=== PATIENT | female | born 1970 | race Two or more races ===

== ENCOUNTER 2018-11-03 10:11 | Inpatient (IN) | payer MEDICAID ==
[~2018-11-03] VITALS: Ht 160 cm; Wt 59.9 kg
[2018-11-03 11:26] LABS: BASOPHILS % (AUTO) 0.8 % (0.0-2.0); HEMATOCRIT 38.9 % (36-46); HEMOGLOBIN 12.7 g/dL (12.0-16.0); LYMPHOCYTES # (AUTO) 1.8 K/uL (1.0-4.8); LYMPHOCYTES % (AUTO) 23.3 % (22.0-44.0); MEAN CORPUSCULAR HGB CONC 32.6 G/dL (31.0-37.0); MEAN CORPUSCULAR VOLUME 89 fL (80-100); MONOCYTES # (AUTO) 0.6 K/uL (0.1-1.0); MONOCYTES % (AUTO) 7.7 % (2.0-9.0); NEUTROPHILS # (AUTO) 5.1 K/uL (1.8-7.7); NEUTROPHILS % (AUTO) 64.2 % (40.0-70.0); PLATELET COUNT (AUTO) 298 K/uL (150-450); RED BLOOD CELL COUNT(AUTO) 4.37 MIL/uL (4.00-5.20); RED CELL DISTRIBUTION WIDTH 12.6 % (11.5-14.5)
[2018-11-03 11:57] LABS: ALANINE AMINOTRANSFERASE 19 U/L (12-78); ALBUMIN 3.4 g/dL (3.4-5.0); ALKALINE PHOSPHATASE 86 U/L (46-116); ANION GAP 9 mmol/L (8-16); ASPARTATE AMINOTRANSFERASE 24 U/L (15-37); BILIRUBIN,TOTAL 0.2 mg/dL (0.1-1.0); CALCIUM, TOTAL 8.4 mg/dL (8.8-10.5); CARBON DIOXIDE 28 mmol/L (22-29); CHLORIDE 103 mmol/L (98-107); CREATININE 0.72 mg/dL (0.60-1.30); GLOMERULAR FILTR. RATE CALC > 60 mL/min (>60); GLUCOSE,RANDOM 72 mg/dL (70-110); HCG,QUANTITATIVE 3 mIU/mL (0-6); POTASSIUM 3.5 mmol/L (3.5-5.1); SODIUM SERUM 140 mmol/L (136-145); TOTAL PROTEIN, SERUM 6.9 g/dL (6.4-8.2)
[2018-11-03 12:23] LABS: UREA NITROGEN, BLOOD 9 mg/dL (7-18)
[2018-11-03] MEDS ORDERED: LORazepam 2 MG TABLET PO PRN (18:00)
[2018-11-03 19:42] VITALS: BP 122/62
[2018-11-03] MEDS ORDERED: DOCUSATE SODIUM 100 MG CAPSULE PO PRN (21:00)
[2018-11-03] MEDS ORDERED: LOPERAMIDE HCL 2 MG CAPSULE PO PRN (21:00)
[2018-11-03] MEDS ORDERED: PETROLATUM,WHITE 28 GM JELLY TP PRN (21:00)
[2018-11-03] MEDS ORDERED: CloNIDine HCL 0.1 MG TABLET PO PRN (21:00)
[2018-11-03] MEDS ORDERED: ONDANSETRON HCL 4 MG TABLET PO PRN (21:00)
[2018-11-03] MEDS ORDERED: NICOTINE 14 MG/24 HOUR PATCH TD PRN (21:00)
[2018-11-03] MEDS ORDERED: MAGNESIUM HYDROXIDE SUSPENSION 30 ML UDCUP PO PRN (21:00)
[2018-11-03] MEDS ORDERED: ACETAMINOPHEN 325 MG TABLET PO PRN (21:00)
[2018-11-03] MEDS ORDERED: ALBUTEROL SULFATE HFA 90 MCG/PUFF 8 GM INHALER IH PRN (21:00)
[2018-11-03] MEDS ORDERED: GuaiFENesin/D-METHORPHAN [SUGAR-FREE] 200-20MG/10 ML SYRUP UDCUP PO PRN (21:00)
[2018-11-03] MEDS ORDERED: MAG HYDROX/AL HYDROX/SIMETH ES 30 ML SUSPENSION UDCUP PO PRN (21:00)
[2018-11-03] MEDS ORDERED: IBUPROFEN 400 MG TABLET PO PRN (21:00)
[2018-11-04] MEDS: SULFAMETHOX/TRIMETH DS 800-160 MG/TABLET PO SCH ×2 (09:00→17:00)
[2018-11-04 09:26] VITALS: BP 153/77
[2018-11-04] MEDS: LEVOFLOXACIN 500 MG TABLET PO SCH (11:00)
[2018-11-04] MEDS: ZIPRASIDONE HCL 40 MG CAPSULE PO SCH (17:30)
[2018-11-05 01:25] VITALS: BP 107/84
[2018-11-05] MEDS: HALOPERIDOL 5 MG TABLET PO PRN (01:27)
[2018-11-05] MEDS: ZOLPIDEM TARTRATE 10 MG TABLET PO PRN (01:27)
[2018-11-05] MEDS: ZIPRASIDONE HCL 40 MG CAPSULE PO SCH ×2 (07:01→17:08)
[2018-11-05 08:30] VITALS: BP 158/96
[2018-11-05] MEDS: SULFAMETHOX/TRIMETH DS 800-160 MG/TABLET PO SCH ×2 (09:47→17:08)
[2018-11-05] MEDS: ASCORBIC ACID 500 MG TABLET PO SCH (09:48)
[2018-11-05] MEDS: MULTIVITAMINS WITH MINERALS, THERAPEUTIC TABLET PO SCH (09:48)
[2018-11-05] MEDS: LEVOFLOXACIN 500 MG TABLET PO SCH (09:48)
[2018-11-06] MEDS: ZIPRASIDONE HCL 40 MG CAPSULE PO SCH ×2 (06:53→17:00)
[2018-11-06] MEDS: LEVOFLOXACIN 500 MG TABLET PO SCH (09:30)
[2018-11-06] MEDS: ASCORBIC ACID 500 MG TABLET PO SCH (09:30)
[2018-11-06] MEDS: MULTIVITAMINS WITH MINERALS, THERAPEUTIC TABLET PO SCH (09:30)
[2018-11-06] MEDS: SULFAMETHOX/TRIMETH DS 800-160 MG/TABLET PO SCH ×2 (09:30→17:00)
[2018-11-06 10:45] VITALS: BP 153/77
[2018-11-07 01:33] VITALS: BP 144/76
[2018-11-07] MEDS: ZIPRASIDONE HCL 40 MG CAPSULE PO SCH ×2 (06:52→17:12)
[2018-11-07] MEDS: LEVOFLOXACIN 500 MG TABLET PO SCH (09:50)
[2018-11-07] MEDS: MULTIVITAMINS WITH MINERALS, THERAPEUTIC TABLET PO SCH (09:50)
[2018-11-07] MEDS: ASCORBIC ACID 500 MG TABLET PO SCH (09:50)
[2018-11-07] MEDS: SULFAMETHOX/TRIMETH DS 800-160 MG/TABLET PO SCH ×2 (09:50→17:12)
[2018-11-07] MEDS: AmLODIPine BESYLATE 5 MG TABLET PO SCH (16:45)
[2018-11-07] MEDS: HALOPERIDOL 5 MG TABLET PO PRN (17:12)
[2018-11-07 17:50] VITALS: BP 121/66
[2018-11-08] MEDS: ZOLPIDEM TARTRATE 10 MG TABLET PO PRN (01:34)
[2018-11-08] MEDS: ZIPRASIDONE HCL 40 MG CAPSULE PO SCH (06:48)
[2018-11-08 08:54] VITALS: BP 114/67
[2018-11-08] MEDS ORDERED: ZIPR40CA2 PO (10:41)
[2018-11-08] MEDS: LEVOFLOXACIN 500 MG TABLET PO SCH (10:57)
[2018-11-08] MEDS: ASCORBIC ACID 500 MG TABLET PO SCH (10:57)
[2018-11-08] MEDS: AmLODIPine BESYLATE 5 MG TABLET PO SCH (10:58)
[2018-11-08] MEDS: SULFAMETHOX/TRIMETH DS 800-160 MG/TABLET PO SCH (10:58)
[2018-11-08] MEDS: MULTIVITAMINS WITH MINERALS, THERAPEUTIC TABLET PO SCH (10:59)
[2018-11-08] MEDS ORDERED: AMLO5TAB9 PO (11:20)
[2018-11-08] MEDS ORDERED: BACTDSB PO (11:20)
[2018-11-08] MEDS ORDERED: LEVO500 PO (11:20)
== END 2018-11-08 13:00 | disposition home or self-care (01) | DRG 750 ==
LOC: EMS 10:13 → 3EI 19:00
PROVIDERS: ADMIT Psychiatry & Neurology Psychiatry; ATTEND Psychiatry & Neurology Psychiatry
DX: F25.0 Schizoaffective disorder, bipolar type (principal); Z59.0 Homelessness; F10.10 Alcohol abuse, uncomplicated; F41.9 Anxiety disorder, unspecified; Y90.9 Presence of alcohol in blood, level not specified; R45.87 Impulsiveness; I10 Essential (primary) hypertension; Z87.891 Personal history of nicotine dependence; Z91.19 Patient's noncompliance with other medical treatment and regimen
CPT/HCPCS: G0480